=== PATIENT | female | born 2000 | race Caucasian/White ===

== ENCOUNTER 2019-12-27 09:32 | Outpatient (REF) | payer BC, MEDICAID, SELFPAY ==
--- NOTE | 2019-12-27 09:35 | XR_ITS ---
EXAMINATION: XR CLAVICLE, RIGHT CLINICAL INFORMATION: Follow-up fracture COMPARISON: Previous x-rays most recent 11/15/2019 TECHNIQUE: 2 of the right clavicle. FINDINGS: There is a plate and screws transfixing a right mid clavicle fracture. The third most medial screw may have backed out slightly compared to prior exams. Alignment is unchanged. Fracture line is still seen and there is a lucency seen surrounding the third most medial screw that extends into the fracture. This is unchanged. Soft tissues are unremarkable. XR/XR clavicle RT IMPRESSION: ORIF of right clavicle fracture. Lucency still seen at the fracture and surrounding third most medial screw.
== END 2019-12-27 09:33 | disposition home or self-care (01) ==
LOC: HO.HOSX 09:32
PROVIDERS: Visit Provider Physician Assistant
DX: S42.009D Fracture of unspecified part of unspecified clavicle, subsequent encounter for fracture with routine healing (principal); X58.XXXD Exposure to other specified factors, subsequent encounter
CPT/HCPCS: 73000; 99212

== ENCOUNTER 2020-02-04 08:58 | Outpatient (REF) | payer BC, SELFPAY ==
--- NOTE | 2020-02-04 08:59 | XR_ITS ---
EXAMINATION: XR CLAVICLE, RIGHT CLINICAL INFORMATION: Follow up fracture COMPARISON: Previous x-rays most recent 12/27/2019 TECHNIQUE: 2 of the right clavicle. FINDINGS: There is a plate and screws transfixing the right mid clavicle fracture. Orthopedic hardware is unchanged. Lucency adjacent to the third most medial screw is unchanged. Fracture line is still seen. No bony callus formation is seen Alignment is unchanged. Soft tissues are unremarkable. XR/XR clavicle RT IMPRESSION: ORIF of right clavicle fracture unchanged from previous exams.
== END 2020-02-04 08:59 | disposition home or self-care (01) ==
LOC: HO.HOSX 08:58
PROVIDERS: Visit Provider Orthopaedic Surgery
DX: S42.022D Displaced fracture of shaft of left clavicle, subsequent encounter for fracture with routine healing (principal)
CPT/HCPCS: 73000

== ENCOUNTER 2020-07-01 09:19 | Outpatient (REF) | payer BC, SELFPAY ==
--- NOTE | ~2020-07-01 | XR_ITS ---
EXAMINATION: XR CLAVICLE, RIGHT CLINICAL INFORMATION: Follow-up fracture COMPARISON: Previous x-ray most recent January 2020 TECHNIQUE: 2 of the right clavicle. FINDINGS: There is a plate and screws transfixing a right mid clavicle fracture.. Hardware appears intact. Fracture line is still seen. Soft tissues are unremarkable. XR/XR clavicle RT IMPRESSION: No change in right clavicle fracture from January 2020 exam.
== END 2020-07-01 09:20 | disposition home or self-care (01) ==
LOC: HO.HOSX 09:19
PROVIDERS: Visit Provider Orthopaedic Surgery
DX: M89.8X1 Other specified disorders of bone, shoulder (principal); S42.022D Displaced fracture of shaft of left clavicle, subsequent encounter for fracture with routine healing
CPT/HCPCS: 73000

== ENCOUNTER 2020-10-14 08:07 | Outpatient (REF) | payer BC, SELFPAY ==
--- NOTE | ~2020-10-14 | XR_ITS ---
EXAMINATION: XR CLAVICLE, RIGHT CLINICAL INFORMATION: Fracture follow-up. COMPARISON: Most recent right clavicle radiographs dated 07/01/2020. TECHNIQUE: Straight AP and cephalad angulated AP views of the right clavicle. FINDINGS: Redemonstration of a superior stabilization plate with fixation screws across the clavicle. No acute hardware fracture. No perihardware lucency to suggest loosening or infection. No displaced midclavicular fracture in unchanged anatomic alignment with significant interval new bone/callus formation. No abnormal soft tissue calcification. XR/XR clavicle RT IMPRESSION: Right clavicular ORIF without evidence of hardware complication. Right clavicular fracture in unchanged anatomic alignment with interval new bone/callus formation.
== END 2020-10-14 08:08 | disposition home or self-care (01) ==
LOC: HO.HOSX 08:07
PROVIDERS: Visit Provider Orthopaedic Surgery
DX: S42.022D Displaced fracture of shaft of left clavicle, subsequent encounter for fracture with routine healing (principal)
CPT/HCPCS: 73000

== ENCOUNTER 2022-10-09 01:00 | Emergency (ER) | payer BC, MEDICAID, SELFPAY ==
--- NOTE | ~2022-10-09 | XR_ITS ---
EXAMINATION: XR ANKLE, LEFT CLINICAL INFORMATION: Injury. Pain. COMPARISON: None available. TECHNIQUE: AP, lateral, and mortise views of the left ankle. FINDINGS: The bone mineralization is within normal limits. The joint spaces are maintained. There is no fracture. There is moderate anterolateral soft tissue swelling. XR/XR ankle LT min 3V IMPRESSION: No acute osseous abnormality. Moderate anterolateral soft tissue swelling.
[2022-10-09 01:19] VITALS: BP 114/76; PULSE 100; RESP 16; TEMP 37; O2SAT 100; BMI 23.0
== END 2022-10-09 05:11 | disposition left against medical advice (07) ==
PROVIDERS: Emergency Provider Emergency Medicine
DX: M25.572 Pain in left ankle and joints of left foot (principal)
CPT/HCPCS: 73610; 99281; 99283

== ENCOUNTER 2022-10-09 12:53 | Emergency (ER) | payer BC, MEDICAID, SELFPAY ==
[2022-10-09 13:29] VITALS: BP 105/77; PULSE 64; RESP 22; TEMP 35.7; O2SAT 98; BMI 24.8
--- NOTE | 2022-10-09 13:34 | ED.GENADULT ---
HPI - General Adult General Chief complaint: Extremity Injury, Lower Stated complaint: L foot inj Time Seen by Provider: 10/09/22 15:19 Source: patient Mode of arrival: ambulatory Limitations: no limitations History of Present Illness HPI narrative: 22 yold female presents to the ED for left ankle pain. patient states she jumped out of a trailer and landed unto her feet and her hell got stuck in the gavel and her left ankle bended awkardly. Patient denies hitting head or body hitting the ground Related Data Previous Rx's Medication Instructions Recorded naproxen 500 mg tablet 500 mg PO BID PRN pain 7 days #14 10/09/22 tabs prednisone 20 mg tablet 40 mg PO DAILY 5 days #10 tabs 10/09/22 Allergies Allergy/AdvReac Type Severity Reaction Status Date / Time amoxicillin [AMOXICILLIN] Allergy Unknown ANAPHYLAXIS Verified 10/09/22 13:29 Review of Systems Review of Systems: LEft ankle pain Yes all other systems are reviewed and are negative [facility] Social History Social History Advance Directives: No Advance Directives Information Provided: Yes Current occupational status: employed Current occupation: [employer] - Right Handed Physical Exam ED Vital Signs: Vital Signs - 24 hr 10/09/22 13:29 10/09/22 15:18 Temperature 96.2 F L 98.4 F Pulse Rate 64 86 Respiratory Rate 22 H 18 Blood Pressure 105/77 133/93 H Pulse Oximetry 98 99 Oxygen Delivery Method Room Air Room Air BMI result Body Mass Index 24.8 Const General: cooperative, healthy appearing, comfortable, no acute distress, well developed, alert and awake Orientation/consciousness: oriented to person, oriented to place, oriented to time and patient oriented x3 HENMT Head: Yes normal to inspection, Yes No palpable skull fracture present, Yes normocephalic and Yes atraumatic Ears: hearing grossly normal bilaterally, external ears normal, TM's normal bilaterally, TM normal on the right, TM normal on the left, EAC's normal, mastoids normal and no periauricular adenopathy Eyes General: appearance normal, both eyes and all related structures Neck Neck: Yes normal visual inspection, Yes full ROM, Yes no lymphadenopathy, Yes no meningeal signs, Yes trachea midline, Yes supple, No anterior neck swelling and No tender Chest Chest palpation & inspection: normal inspection of the chest and normal palpation of entire chest wall Resp Effort & Inspection: normal respiratory effort and able to speak in complete sentences Cardio Jugular venous distension: no JVD Heart sounds: S1 normal heart sound present and S2 normal heart sound present GI Inspection: Yes normal to inspection and No abdominal wall ecchymosis Palpation (GI): Soft to palpation, not firm, nontender and no guarding General: No CVA tenderness and Yes no CVA tenderness Back/Spine/Pelvis Back: no CVA tenderness, No CVA tenderness and No back tenderness Skin General skin exam: no rashes or lesions noted, elasticity normal and turgor normal Neuro General: oriented to person, oriented to place, oriented to time, patient oriented x3, tone normal, moves all extremities, Normal light touch and pain sensation, no meningeal signs, no focal motor deficits, CN's II-XI intact bilaterally and normal sensation to monofilament Extrem General: Yes normal to inspection and Yes full ROM Ankle/foot/toe images: 1. Ecchymosis with swelling on palpation. Negative crepitus. Vascular neuro exam intact. Motor exam limited due to pain. Psych Appearance: grossly normal, well kempt and not disheveled Course Course Course Narrative: RME: 22 yold female presents to the ED for left ankle pain since last night. patient twisted her ankle last night in heels while getting off a trailer. Patient left ED before being seen. Xray negative for fracture. pain meds ordered Medications Administered Discontinued Medications Generic Name Dose Route Start Last Admin Trade Name Tremayne PRN Reason Stop Dose Admin Ibuprofen 800 mg 10/09/22 13:33 10/09/22 15:34 Ibuprofen 800 Mg Tablet PO 10/09/22 13:34 Not Given ONCE ONE Oxycodone HCl 5 mg 10/09/22 13:33 10/09/22 15:24 Oxycodone Hcl Immed Release 5 Mg Tablet PO 10/09/22 13:34 5 mg ONCE ONE Administration Medical Decision Making Medical Decision Making MDM Narrative: 22 yold female presents to the ED for left ankle pain. Patient states last night jumped out of a trailer and heel got stuck and gravel and had pain in left ankle immediately. Patient had x-ray done yet last night in the hospital but not wait for results. X-ray came back negative for any fractures. Neurovascular exam of left lower extremity intact. Motor exam of ankle limited due to pain. Patient will be discharged with crutches and Thierry wrap. Differential Diagnosis Differential Diagnoses: The differential diagnosis associated with the presentation includes (Ankle dislocation. Ankle fracture. Foot fracture,) Admission/Observation Consideration of admission/observation: Escalation of care including admission/observation considered Independent Interpretation I performed an independent interpretation of an: Plain X-Ray Interpretation: Patient: Mary Avila MR#: [id number] : 2000 Acct:[id number] Age/Sex: 22 / F ADM Date: 10/09/22 Loc: HO.ED Attending Dr: Ordering Physician: Generic ED Physician Date of Service: 10/09/22 Procedure(s): XR ankle LT min 3V Accession Number(s): [id number] cc: Generic ED Physician~ EXAMINATION: XR ANKLE, LEFT CLINICAL INFORMATION: Injury. Pain. COMPARISON: None available.? TECHNIQUE: AP, lateral, and mortise views of the left ankle. FINDINGS: The bone mineralization is within normal limits. The joint spaces are maintained. There is no fracture. There is moderate anterolateral soft tissue swelling.? XR/XR ankle LT min 3V IMPRESSION: No acute osseous abnormality. ? Moderate anterolateral soft tissue swelling. Radiology Impression Discussion of test interpretation with radiology: I have reviewed the radiologist's reading. Prescription Management I considered prescription management with: Pain Medication Discharge Plan Discharge Clinical Impression: Ankle sprain Patient Disposition: Home, Self-Care Instructions: Ankle Sprain (ED), Crutch Instructions (ED), R.I.C.E. Treatment (ED) Additional Instructions: The x-ray came back negative for fracture. Recommend follow-up with primary care provider or orthopedic for MRI there is no improvement. Return to the ED immediately for any increase swelling, bluish black discoloration, hotness, coldness, numbness, redness, red streaks, calf pain, chest pain, shortness of breath, fever, chills, or any other concerning symptoms. FINDINGS: The bone mineralization is within normal limits. The joint spaces are maintained. There is no fracture. There is moderate anterolateral soft tissue swelling.? XR/XR ankle LT min 3V IMPRESSION: No acute osseous abnormality. ? Moderate anterolateral soft tissue swelling. Prescriptions: New naproxen 500 mg tablet 500 mg PO BID PRN (Reason: pain) 7 Days Qty: 14 0RF prednisone 20 mg tablet 40 mg PO DAILY 5 Days Qty: 10 0RF Referrals: [facility] [place]Provider Group] ( left Ankle sprain) Stand Alone Forms: Work/School Release Interventions: ED Discharge Assessment Last Done: 10/09/22 15:53 Discharge Date/Time: 10/09/22 15:55 Print Language: Khmer
[2022-10-09 15:18] VITALS: BP 133/93; PULSE 86; RESP 18; TEMP 36.9; O2SAT 99
[2022-10-09] MEDS: oxyCODONE HCl Immed Release 5 MG TABLET PO (15:24)
== END 2022-10-09 15:55 | disposition home or self-care (01) ==
LOC: HO.ED 15:42
PROVIDERS: Emergency Provider Emergency Medicine Emergency Medical Services
DX: S93.402A Sprain of unspecified ligament of left ankle, initial encounter (principal); X58.XXXA Exposure to other specified factors, initial encounter; Y93.9 Activity, unspecified; Y92.9 Unspecified place or not applicable; Y99.9 Unspecified external cause status
CPT/HCPCS: 99284

== ENCOUNTER 2022-10-21 08:34 | Outpatient (AMB) | payer BC, SELFPAY ==
--- NOTE | 2022-10-21 08:39 | A.OFFVIS_ITS ---
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 Patient reports she jumped out of a trailer and landed onto her feet and her hell got stuck in the gavel and her left ankle bended awkwardly. She states she is having sharp and throbbing on the lateral side of her foot. Denies numbness and tingling. 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 The patient presented to the ED on 10/09/2022 status post jumping out of a trailer and her heel got stuck in the gravel causing her ankle to bend awkwardly. X-rays of the ankle were obtained. She left the ED with out being seen, per the ED note. In the office today she states she is not sure what happened after she jumped down due to blacking out from the pain. She claims she is having sharp and throbbing pain on the lateral aspect of the left foot. She denies numbness or tingling. She states touching the ankle feels weird. 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 [facility] Social History (Updated 10/21/22 @ 08:42 by Alex Bond) Current occupational status: employed Current occupation: [employer] - Right Handed Review of Systems Const All systems reviewed & are unremarkable except as noted in HPI and below Physical Exam Const General: cooperative, healthy appearing and no acute distress Resp Effort & Inspection: normal respiratory effort and able to speak in complete sentences Cardio Rate: regular rate Peripheral pulses: Peripheral pulses 2+ throughout GI Palpation (GI): Soft to palpation Skin Lesions: no lesions Rashes: no rashes Extrem Other: Left ankle: Severe circumferential edema. Ecchymosis along the medial and lateral aspect of the heel. Able to minimally dorsiflex and plantarflex. Sensation intact. Pedal pulse intact. Assessment & Plan Assessment & Plan (1) Severe ankle sprain: Code(s): S93.409A - Sprain of unspecified ligament of unspecified ankle, initial encounter Plan Ms. Avila is a 22-year-old female who presents in the office today for an evaluation of left ankle pain. The patient presented to the ED on 10/09/2022 status post jumping out of a trailer and her heel got stuck in the gravel causing her ankle to bend awkwardly. X-rays of the ankle were obtained. She left the ED with out being seen, per the ED note. In the office today she states she is not sure what happened after she jumped down due to blacking out from the pain. She claims she is having sharp and throbbing pain on the lateral aspect of the left foot. She denies numbness or tingling. She states touching the ankle feels weird. 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 The patient will be referred for an MRI to further evaluated the integrity of the left ankle. She will be placed in a tall walking boot, off the shelf, while in the office today. I educated the patient the importance of elevation. She was given a work note stating she is out of work until follow up in 1 week. The second note states return to work in 1 week with a stool to elevate the left lower extremity. Follow up will be after the MRI is obtained and I will call her with the results, or sooner if needed. X-rays of the left ankle, obtained on 10/09/2022, revealed: 1. No acute osseous abnormality. 2. Moderate anterolateral soft tissue swelling. Orders: Orders MR ankle LT wo con Today S93.409A - Sprain of unspecified ligament of unspecified ankle, initial encounter Patient Instructions: Scribed for Sonia Ricardo PA-C by Roz Mark medical apparatus model maker, on 10/21/2022 at 8:35 am, EST. Coding Level of Care Code New Pt Level 4 (72932) Diagnoses Severe ankle sprain S93.409A
== END 2022-10-21 09:40 | disposition home or self-care (01) ==
PROVIDERS: Visit Provider Physician Assistant
DX: S93.402A Sprain of unspecified ligament of left ankle, initial encounter (principal)
CPT/HCPCS: 99214

== ENCOUNTER → 2022-10-21 08:34 | Outpatient (BNVA) | payer BC, SELFPAY | PROVIDERS: Visit Provider Physician Assistant ==

== ENCOUNTER 2022-10-28 08:45 | Outpatient (AMB) | payer BC, SELFPAY ==
--- NOTE | 2022-10-28 08:47 | MHC.OFFVIS ---
Intake Intake Visit Reasons: OV- Rt ankle sprain needs boot Intake Note: izabel is a 22 year old female who presents today?to be placed in a boot. Allergies amoxicillin [AMOXICILLIN] Allergy (Unknown, Verified 10/28/22 08:47) ANAPHYLAXIS HPI OV- Rt ankle sprain needs boot HPI Details 22-year-old female who presents in the office today for a follow up of her left ankle sprain. She is here to transition to the boot and out of the splint. [facility] Social History Current occupational status: employed Current occupation: [employer] - Right Handed Review of Systems Const All systems reviewed & are unremarkable except as noted in HPI and below Physical Exam Const General: cooperative, healthy appearing and no acute distress Resp Effort & Inspection: normal respiratory effort and able to speak in complete sentences Cardio Rate: regular rate Peripheral pulses: Peripheral pulses 2+ throughout GI Palpation (GI): Soft to palpation Skin Lesions: no lesions Rashes: no rashes Extrem Other: Left ankle: Moderate anklel edema. Ecchymosis along the medial and lateral aspect of the heel. Able to minimally dorsiflex and plantarflex. Sensation intact. Pedal pulse intact. Assessment & Plan Assessment & Plan (1) Severe ankle sprain: Code(s): S93.409A - Sprain of unspecified ligament of unspecified ankle, initial encounter Plan Ms. Avila is a 22-year-old female who presents in the office today for a follow up of her left ankle sprain. She is here to transition to the boot and out of the splint. The patient will be placed in a tall walking boot, off the shelf, while in the office today. She was also given a splint, off the shelf, to wear at night when in bed. She understands she will need to put the boot on before getting out of bed to bear weight. She may weight bear as tolerated. Follow up will be in 4 weeks, or sooner if needed. Patient Instructions: Scribed for Sonia Ricardo PA-C by Roz Mark medical data analyst, on 10/28/2022 at 8:49 am, EST. Coding Level of Care Code Est Pt Level 3 (94379) Diagnoses Severe ankle sprain S93.409A
== END 2022-10-28 09:37 | disposition home or self-care (01) ==
PROVIDERS: Visit Provider Physician Assistant
DX: S93.401A Sprain of unspecified ligament of right ankle, initial encounter (principal)
CPT/HCPCS: 99213

== ENCOUNTER → 2022-10-28 08:45 | Outpatient (BNVA) | payer BC, SELFPAY | PROVIDERS: Visit Provider Physician Assistant ==

== ENCOUNTER 2023-11-26 15:00 | Emergency (ER) | payer SELFPAY ==
--- NOTE | ~2023-11-26 | XR_ITS ---
EXAMINATION: XR CHEST CLINICAL INFORMATION: Cough chest pain COMPARISON: None available. TECHNIQUE: 2 views of the chest were obtained. FINDINGS: There is an anterior right lower lobe consolidation. Lungs otherwise clear. Cardiac mediastinal silhouette normal. XR/XR chest 2V IMPRESSION: Right lower lobe consolidation compatible with pneumonia. Electronically signed by: Kingston Albright MD 11/26/2023 04:26 PM EDT RP
[2023-11-26 15:11] VITALS: BP 145/86; PULSE 91; RESP 18; TEMP 37; O2SAT 99; BMI 33.1
--- NOTE | 2023-11-26 15:12 | ED_ITS ---
HPI - URI/Sore Throat General Chief Complaint: Upper Respiratory Symptoms Stated Complaint: cough with burning sensation Time Seen by Provider: 11/26/23 16:39 Source: patient Mode of arrival: ambulatory Limitations: no limitations History of Present Illness HPI Narrative: Patient is a 19 year old female who presents to the emergency department for evaluation of Cough, burning sensation in my lungs?, chills, sweating, onset of symptoms a couple days ago. Admits her boyfriend has been no recently similar symptoms, was diagnosed with pneumonia. Related Data Previous Rx's ?Medication ?Instructions ?Recorded naproxen 500 mg tablet 500 mg PO BID PRN pain 7 days #14 10/09/22 tabs prednisone 20 mg tablet 40 mg (2 x 20 mg) PO DAILY 5 days 10/09/22 #10 tabs doxycycline hyclate 100 mg capsule 100 mg PO BID #10 caps 11/26/23 Allergies Allergy/AdvReac Type Severity Reaction Status Date / Time amoxicillin [AMOXICILLIN] Allergy Unknown ANAPHYLAXIS Verified 11/26/23 15:13 Review of Systems Review of Systems: Yes all other systems are reviewed and are negative [facility] Past Medical History Attestation statement: The following information was validated with the patient. Source: old records reviewed Social History Social History Do you have a plan to hurt others: No Plan Current occupational status: employed Current occupation: [employer] - Right Handed Physical Exam Vital Signs: Vital Signs: Last Vital Signs Temp 98.6 F 11/26/23 15:11 Pulse 91 11/26/23 15:11 Resp 18 11/26/23 15:11 BP 145/86 H 11/26/23 15:11 Pulse Ox 99 11/26/23 15:11 O2 Del Method Room Air 11/26/23 15:11 BMI result Body Mass Index 33.1 Appearance: Alert.?Oriented to person, place and time. No acute distress.?Normal affect. Eyes: Pupils equal, round and reactive to light.? ENT: Pharynx normal.?? Neck: Normal inspection.? Neck supple.?? CVS: Heart sounds normal. Normal heart rate and rhythm.? Pulses normal.?? Respiratory: No respiratory distress.? Lung sounds clear to auscultation bilaterally?? Abdomen: Soft and non-tender. Normoactive bowel sounds. Skin: Skin warm and dry.? Normal skin color.? ?? Extremities: No lower extremity edema.? No calf ttp? Neuro: Moves all extremities spontaneously. Sensation intact bilaterally. Ambulates with normal steady gait. Medical Decision Making Medical Decision Making [facility] Narrative: Patient is a 23-year-old female who presents emergency department for evaluation of respiratory symptoms as per HPI. No respiratory distress, lung sounds are clear bilaterally, no hypoxia or tachypnea. She is afebrile and without tachycardia. No evidence of sepsis. She has an audible nonproductive cough, CXR my interpretation indicating a right lower lobe pneumonia. She is otherwise healthy without comorbidities, has an allergy to amoxicillin therefore will treat with doxycycline, instructed on precautions with usage reviewed worrisome signs and symptoms that would warrant re-evaluation emergency department. All questions answered. Stable for discharge Differential Diagnosis Differential Diagnoses: The differential diagnosis associated with the presentation includes (Viral upper respiratory infection, pneumonia) Lab Data [facility] Lab Attestation statement: I reviewed the patient's lab results. Labs: Lab Results 11/26/23 Range/Units 15:22 Influenza Type A (PCR) NEGATIVE (Negative) Influenza Type B (PCR) NEGATIVE (Negative) RSV RNA Qual (PCR) NEGATIVE (Negative) SARS-CoV-2 RNA (RT-PCR) NEGATIVE (Negative) Independent Interpretation I performed an independent interpretation of an: Plain X-Ray (See narrative above) Radiology Impression Discussion of test interpretation with radiology: I have reviewed the radiologist's reading. Radiologist Impression: XR/XR chest 2V IMPRESSION: Right lower lobe consolidation compatible with pneumonia. External Record Review External record reviewed: Outpatient record Prescription Management I considered prescription management with: Pain Medication and Antibiotic Discharge Plan Discharge Clinical Impression: Community acquired pneumonia Patient Disposition: Home, Self-Care Instructions: Community Acquired Pneumonia (ED) Additional Instructions: On doxycycline, do not take pills immediately before going to bed and swallow pills with plenty of water. Avoid direct sunlight, iron, antacids, and Pepto Bismol. Call your provider if you develop new ringing in your ears, new problems hearing, dizziness, difficulty swallowing, rash, abdominal discomfort, nausea, or diarrhea.? Prescriptions: New doxycycline hyclate 100 mg capsule 100 mg PO BID Qty: 10 0RF No Action naproxen 500 mg tablet 500 mg PO BID PRN (Reason: pain) 7 Days Qty: 14 0RF prednisone 20 mg tablet 40 mg PO DAILY 5 Days Qty: 10 0RF Referrals: Physician,Unknown J [Primary Care Provider] - Print Language: Kinyarwanda
[2023-11-26 16:07] LABS: Influenza A PCR NEGATIVE (Negative); Influenza B PCR NEGATIVE (Negative); Resp Syncy Virus RNA Qual PCR NEGATIVE (Negative); SARS COV2 PCR INHOUSE NEGATIVE (Negative)
[2023-11-26 16:51] VITALS: BP 143/80; PULSE 94; RESP 18; TEMP 36.9; O2SAT 98
== END 2023-11-26 16:52 | disposition home or self-care (01) ==
PROVIDERS: Nurse Practitioner Family; Emergency Provider Emergency Medicine
DX: J18.9 Pneumonia, unspecified organism (principal); J02.9 Acute pharyngitis, unspecified; R05.9 Cough, unspecified; Z03.818 Encounter for observation for suspected exposure to other biological agents ruled out
CPT/HCPCS: 0241U; 71046; 99282; 99283